=== PATIENT | male | born 1965 | race Caucasian/White ===

== ENCOUNTER 2025-08-13 19:15 | Observation (INO) | payer OTHER ==
[2025-08-13 23:16] VITALS: BMI 22.8
[2025-08-13] MEDS ORDERED: Ondansetron PF 4 MG/2 ML Vial IVP PRN (23:57)
[2025-08-13] MEDS ORDERED: Acetaminophen 325 MG TAB PO PRN (23:57)
[2025-08-14 05:26] LABS: #Basophils 0.05 10x3/uL (0.0-0.2); #Eosinophils 0.59 10x3/uL (0.0-0.7); #Monocytes 0.67 10x3/uL (0.11-0.59); #Neutrophils 2.96 10x3/uL (1.40-6.50); %Basophils 0.8 % (0.0-1.0); %Eosinophils 9.7 % (0.0-10.0); %Lymphocytes 29.6 % (21.0-51.0); %Monocytes 11.0 % (0.0-10.0); %Neutrophils 48.7 % (42.0-75.0); Hematocrit 40.3 % (42.0-52.0); Hemoglobin 13.0 g/dL (14.0-18.0); Mean Corpuscular Hemoglobin 29.1 pg (27.0-31.0); Mean Corpuscular Volume 90.2 fL (78.0-98.0); Platelet Count 212 10x3/uL (130-400); Red Blood Cell (RBC) Count 4.47 mill/uL (4.70-6.10); White Blood Cell (WBC) Count 6.08 10x3/uL (4.8-10.8)
[2025-08-14 05:42] LABS: Anion Gap 11 mmol/L (10-20); BUN (Urea Nitrogen) 17 mg/dL (8.4-25.7); Calc. Creatinine Clearance 85 mL/min (70-130); Calcium 9.0 mg/dL (7.8-10.44); Carbon Dioxide 27 mmol/L (23-31); Cardiac Risk 5.1 (Less than 4.5); Chloride 106 mmol/L (98-107); Cholesterol 184 mg/dl (< 200 Desired); Glucose 86 mg/dL (80-115); HDL Cholesterol 36 mg/dL (>60 Neg Risk); LDL Cholesterol, Calculated 126 mg/dL; Potassium 4.0 mmol/L (3.5-5.1); Sodium 140 mmol/L (136-145); Triglycerides 110 mg/dL (Less than 150)
[2025-08-14 15:35] VITALS: BP 136/72; TEMP 97.8
== END 2025-08-14 15:36 | disposition home or self-care (01) ==
LOC: OBS 21:31
PROVIDERS: ADMIT Internal Medicine; ATTEND Internal Medicine
DX: I10 Essential (primary) hypertension (principal); R05.9 Cough, unspecified; Z87.891 Personal history of nicotine dependence; Z88.5 Allergy status to narcotic agent; Z88.0 Allergy status to penicillin; Z79.899 Other long term (current) drug therapy
CPT/HCPCS: 36415; 78452; 80048; 80061; 85025; 93017; A9502; J2785